=== PATIENT | female | born 1970 | race Two or more races ===

== ENCOUNTER 2017-06-25 17:41 | Emergency (ER) | payer SELFPAY ==
[~2017-06-25] VITALS: Ht 165.1 cm; Wt 72.6 kg
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
--- NOTE | 2017-06-25 18:08 | NUR ---
PT TO CT
--- NOTE | 2017-06-25 19:16 | NUR ---
REPORT GIVEN TO SU HALLMAN
[2017-06-25 19:27] VITALS: BP 159/78
--- NOTE | 2017-06-25 19:27 | NUR ---
Patient discharged to home in stable condition. Written and verbal after care instructions given. Patient verbalizes understanding of instruction. PT ambulatory with a steady gait VITAL SIGNS WITHIN NORMAL LIMITS.
[2017-06-25] MEDS ORDERED: TRAMADOL HCL 50 MG TABLET ONE (19:29)
[2017-06-25] MEDS ORDERED: TRAMADOL HCL 50 MG TABLET PO ONE (19:30)
== END 2017-06-25 19:32 | disposition home or self-care (01) ==
LOC: ER 17:43
DX: R07.9 Chest pain, unspecified (principal); M54.5 Low back pain; M54.6 Pain in thoracic spine; I10 Essential (primary) hypertension; M53.82 Other specified dorsopathies, cervical region; V43.52XA Car driver injured in collision with other type car in traffic accident, initial encounter; Y93.89 Activity, other specified; Y92.89 Other specified places as the place of occurrence of the external cause; Y99.8 Other external cause status
CPT/HCPCS: 72070; 72100; 72125; 84703; 99285; A4606; Z7610